=== PATIENT | female | born 1970 | race Caucasian/White ===

== ENCOUNTER → 2017-01-25 | Outpatient (CLI) | payer OTHER ==
[~2017-01-25] MED LIST: CHOL100027 PO; CLR10 PO; IBUP-1277 PO; MELO15TA4 PO; OMEP40CA PO; SYN150 PO; VITA500T2 PO
== END | disposition home or self-care (01) ==
LOC: C.PATHSPEC 17:33
PROVIDERS: ATTEND Obstetrics & Gynecology
DX: N90.89 Other specified noninflammatory disorders of vulva and perineum (principal); R87.622 Low grade squamous intraepithelial lesion on cytologic smear of vagina (LGSIL)

== ENCOUNTER → 2017-02-03 | Outpatient (CLI) | payer OTHER ==
[2017-02-06 03:10] LABS: CHLAMYDIA TRACH RNA*** NOT DETECTED (NOT DETECTED); GC (NEIS GONORRHOEAE)RNA** NOT DETECTED (NOT DETECTED)
== END | disposition home or self-care (01) ==
LOC: C.LABSPEC 17:29
PROVIDERS: ATTEND Physician Assistant
DX: Z11.3 Encounter for screening for infections with a predominantly sexual mode of transmission (principal)

== ENCOUNTER → 2017-07-15 | Outpatient (CLI) | payer OTHER ==
--- NOTE | 2017-07-15 15:47 | MAMMOGRAPHY REPORT ---
BILATERAL DIGITAL SCREENING MAMMOGRAM TOMOSYNTHESIS WITH CAD: 07/15/2017 CLINICAL HISTORY: Routine screening. Patient has no complaints. TECHNIQUE: Breast tomosynthesis in addition to standard 2D mammography was performed. Current study was also evaluated with a Computer Aided Detection (CAD) system. COMPARISON: Comparison is made to exams dated: 07/14/2016 mammogram - [facility], mammogram, 03/13/2014 mammogram, 03/07/2013 mammogram, 03/09/2012 mammogram, and 03/01/2012 mammo gram - [facility]. BREAST COMPOSITION: There are scattered areas of fibroglandular density in both breasts. FINDINGS: No suspicious masses, calcifications, or areas of architectural distortion are noted in ei ther breast. There has been no significant interval change compared to prior exams. 2 benign-appeari ng circumscribed masses in the right upper outer quadrant are stable dating back to at least the 2009 exam and are benign and likely represent intramammary lymph nodes. IMPRESSION: ACR BI-RADS CATEGORY 2: BENIGN There is no mammographic evidence of malignancy. A 1 year screening mammogram is recommended. The pa tient will receive written notification of the results. Approximately 10% of breast cancers are not detected with mammography. A negative mammographic report should not delay biopsy if a clinically suggestive mass is present. Radha Ocasio M.D. /:07/15/2017 12:42:19 Umbrella Tipper: Lolis Ga, [facility] letter sent: Normal 1/2 BI-RADS Code: ACR BI-RADS Category 2: Benign
== END | disposition home or self-care (01) ==
LOC: C.MAMM 09:24
PROVIDERS: ATTEND Obstetrics & Gynecology
DX: Z12.31 Encounter for screening mammogram for malignant neoplasm of breast (principal)

== ENCOUNTER → 2018-01-04 | Outpatient (CLI) | payer OTHER ==
[~2018-01-04] MED LIST changes: +MELO-83 PO; -MELO15TA4 PO
[2018-01-04 18:05] LABS: BASO % 0.2 %; BASO ABS # 0.02 K/uL (0-0.2); EOS % 0.7 %; EOS ABS # 0.07 K/uL (0-0.5); HEMATOCRIT 43.7 % (37-47); HEMOGLOBIN 14.7 g/dL (12.0-16.0); IG# 0.02 K/uL (0.00-0.02); LYMPH % 26.2 %; LYMPH ABS # 2.74 K/uL (1.2-3.4); MEAN CELL VOLUME 94.4 fL (80-100); MEAN CORPUSCULAR HEMOGLOBIN 31.7 pg (25-34); MEAN CORPUSCULAR HGB CONC 33.6 g/dl (32-36); MEAN PLATELET VOLUME 9.6 fL (7.4-10.4); MONO ABS # 0.73 K/uL (0.11-0.59); NEUT % 65.7 %; NEUT ABS # 6.88 K/uL (1.4-6.5); PLATELET COUNT 296 K/uL (130-400); RED CELL DISTRIBUTION WIDTH CV 13.6 % (11.5-14.5); RED CELL DISTRIBUTION WIDTH SD 46.9 fL (36.4-46.3); WHITE BLOOD COUNT 10.46 K/uL (4.8-10.8)
== END | disposition home or self-care (01) ==
LOC: C.LABMFLN 14:07
PROVIDERS: ATTEND Family Medicine
DX: R20.2 Paresthesia of skin (principal)

== ENCOUNTER 2024-08-17 22:55 | Observation (INO) ==
--- NOTE | 2024-08-17 23:17 | Emergency Department Note ---
History of Present Illness General Chief complaint: Infection, Wound Stated complaint: SURGICAL SITE ?INFECTED Time Seen by Provider: 08/17/24 22:57 History of Present Illness Maximum Pain Intensity: 7 This 54-year-old female that had hernia surgery on August 09 presents ER for redness pain and drainage from the incisional site. Patient had an umbilical hernia repair. Patient has fevers, vomiting, diarrhea, flulike illness. Home Medications Medication Instructions Recorded Confirmed Type loratadine 10 mg capsule 10 mg PO QAM 07/19/23 08/09/24 History lysine 1,000 mg tablet 1,000 mg PO QAM 07/19/23 08/09/24 History levothyroxine 150 mcg tablet 150 mcg PO QAM #90 tabs 12/22/23 08/09/24 Rx multivitamin with iron (Daily 1 tab PO HS 12/29/23 08/09/24 History Multiple Vitamins with Iron tablet) omeprazole 40 mg capsule,delayed 40 mg PO QAM 12/29/23 08/09/24 History release lisinopril 20 mg tablet 20 mg PO QAM #90 tabs 02/13/24 08/09/24 Rx calcium citrate-vitamin D3 125 1 tab PO QAM 03/08/24 08/18/24 History mg-62.5 unit tablet albuterol sulfate 90 mcg/actuation 2 puff inhalation QID PRN 05/18/24 08/18/24 Rx aerosol inhaler shortness of breath or wheezing #3 ea fluticasone 100 mcg-salmeterol 50 1 inh inhalation BID PRN flare up 07/04/24 08/09/24 History mcg/dose blistr powdr for inhalation (Advair Diskus) fluticasone fur. 100 mcg-umeclid 1 inh inhalation QAM 07/04/24 08/09/24 History 62.5 mcg-vilant 25 mcg inhalat.powder (Trelegy Ellipta) mecobalamin (vitamin B12) 1,000 1,000 mcg PO HS 07/09/24 08/09/24 History mcg lozenges oxycodone 5 mg tablet 5 - 10 mg (1 - 2 x 5 mg) PO 08/09/24 Rx .[id number] PRN pain #15 tabs Allergies Allergy/AdvReac Type Severity Reaction Status Date / Time Penicillins Allergy Mild Unknown Verified 08/09/24 09:45 Past Med/Surg History Problem List (Updated 08/18/24 @ 01:55 by Helen Elias PA-C) Post op infection (Acute) Abdominal wall cellulitis (Acute) Wound infection Incisional hernia Periumbilical mass Esophageal dysphagia Encounter for pre-operative examination Epigastric abdominal pain Vulvar lesion Frequent UTI Morbid obesity Weight gain Benign essential hypertension Edema of lower extremity S/P section Condyloma acuminatum (Chronic) hx Gastroesophageal reflux disease without esophagitis (Chronic) Hyperlipidemia (Chronic) Hypothyroidism, unspecified (Chronic) Generalized osteoarthritis of multiple sites (Chronic) Osteopenia (Chronic) Recurrent cold sores (Chronic) Vitamin B12 deficiency (Chronic) Asthma (Chronic) Medical History Morbid obesity s/p gastric sleeve 12/09/23; s/p approx 40lb wt loss Hypothyroidism Hyperlipidemia pt denies Generalized osteoarthritis GERD (gastroesophageal reflux disease) History of dysphagia History of esophageal dilatation Hypertension Chronic obstructive pulmonary disease well controlled with trelegy daily. Surgical History History of incisional hernia repair (08/09/24) Open Incisional Hernia Repair with Mesh(Not Applicable) - Milton Poe DO History of section x1 S/P gastric sleeve procedure 12-20-23 [place] History of laparoscopic cholecystectomy (2004) History of esophagogastroduodenoscopy (EGD) Hx of colonoscopy S/P wisdom tooth extraction Hx of hand surgery 07/04/20 Left hand - arthroplasty [facility] Dr. Sky Family History Mother Pancreatic cancer Thyroid disease Sister Thyroid disease Diabetes Grandmother (Maternal) Breast cancer Other Heart disease Stroke Denies family history of Ovarian cancer Prostate cancer Colorectal cancer Social History Smoking Status: Former smoker Tobacco Type: Cigarettes Age Started Using Tobacco: 27; Age Quit Using Tobacco: 47; packs per day: 0.5; Second Hand Exposure: No; Do You Dip or Chew Tobacco: No; Hx Alcohol Use: No Hx Substance Use: No Preferred Language: Panamanian Communication Ability: Effective Visual Impairment: No Limitations Clinical Social Work Therapist Required: No Beliefs That Will Affect Care: None marital status: Single Current Living Situation: Alone current occupational status: employed How many Children do You have: 1 Feels Safe at Home: Yes during the past year weight has: decreased > 10 lbs Assistive Devices: Glasses Review of Systems A total of 10 systems reviewed and were otherwise negative Physical Exam Vital Signs Vital Signs - 24 hr 08/17/24 23:01 08/17/24 23:30 08/17/24 23:30 Temperature 37.1 C Temperature Source Oral Pulse Rate 95 H 92 H Pulse Rate [Apical] 83 Pulse Rhythm [Apical] Regular Respiratory Rate 20 16 16 Respiratory Effort / Characteristics Non-Labored Spontaneous Non-Labored Respiratory Depth Normal Normal Respiratory Pattern Regular Blood Pressure 182/98 H Blood Pressure [Right Arm] 152/110 H Blood Pressure Mean 126 Blood Pressure Mean [Right Arm] 124 Blood Pressure Position [Right Arm] Lying Pulse Oximetry 97 95 Oxygen Delivery Method Room Air Room Air Room Air Oxygen Flow Rate Sepsis Recent Fever Within 48 Hours No Sepsis New/Unexplained Change in Mental Status No Sepsis Action Taken by Nursing No Action Required 08/18/24 01:00 08/18/24 01:30 Temperature Temperature Source Pulse Rate 78 Pulse Rate [Apical] 91 H Pulse Rhythm [Apical] Respiratory Rate 16 16 Respiratory Effort / Characteristics Non-Labored Respiratory Depth Normal Respiratory Pattern Regular Blood Pressure Blood Pressure [Right Arm] 141/83 H Blood Pressure Mean Blood Pressure Mean [Right Arm] 102 Blood Pressure Position [Right Arm] Pulse Oximetry 97 88 L Oxygen Delivery Method Room Air Room Air Oxygen Flow Rate 2 Sepsis Recent Fever Within 48 Hours Sepsis New/Unexplained Change in Mental Status Sepsis Action Taken by Nursing VITALS: Vitals are noted on the nurse's note and reviewed by myself. Vital signs stable. GENERAL: Pleasant female, in no acute distress, nondiaphoretic, well-developed well-nourished. SKIN: Capillary reflex less than 2 seconds. HEENT: Normocephalic. PERRLA. EOMI. Nares patent. Mucous membranes moist. Neck is supple without nuchal rigidity. HEART: Regular rate and rhythm LUNGS: Clear to auscultation bilaterally without wheezes, rales or rhonchi. No retractions or accessory muscle use. ABDOMEN: Positive bowel sounds x 4. Normal tympanic percussion. Soft,midline incision with purulent drainage, erythematous, tender to palpation, culture taken and sent, without masses or organomegaly. Gomez sign negative. No guarding or rebound tenderness. no CVA tenderness MUSCULOSKELETAL: No gross musculoskeletal defects. NEURO: Patient was alert and oriented to person place and time. No focal neurological deficits. Course Administered Medications Morphine Sulfate (Morphine Sulfate 4 Mg/Ml 1 Ml Carp\Vial) 4 mg IV Q15M PRN PRN Reason: Pain Stop: 08/31/24 23:10 Last Admin: 08/18/24 00:57 Dose: 4 mg Documented By: Admin: 08/17/24 23:40 Dose: 4 mg Documented By: CHARLOTTE Discontinued Medications Cefepime HCl (Maxipime 2000mg) 2,000 mg in 20 mls @ 5 mls/min IV NOW STA; Protocol Stop: 08/17/24 23:16 Last Admin: 08/17/24 23:40 Dose: 5 mls/min Documented By: CHARLOTTE Metronidazole (Flagyl) 500 mg in 100 mls @ 100 mls/hr IV NOW STA; Protocol Stop: 08/18/24 00:12 Last Infusion: 08/18/24 00:54 Dose: Infused Documented By: Admin: 08/17/24 23:48 Dose: 100 mls/hr Documented By: CHARLOTTE Ioversol (Optiray 320 100ml) 93 ml IV ONCE ONE Stop: 08/18/24 00:20 Last Admin: 08/18/24 00:19 Dose: 93 ml Documented By: SHELBIE Ondansetron HCl (Ondansetron Inj 2 Mg/Ml 2 Ml Vial) 4 mg IV NOW STA Stop: 08/17/24 23:12 Last Admin: 08/17/24 23:40 Dose: 4 mg Documented By: CHARLOTTE Medical Decision Making Medical Records Attestation: I reviewed the patient's medical records. Home Medications Current Medication List: was personally reviewed by me Laboratory Data Attestation: I reviewed the patient's lab results. 08/17/24 23:11 08/17/24 23:11 Lab Results 08/17/24 08/17/24 08/17/24 Range/Units 23:11 23:14 23:31 WBC 9.99 (4.8-10.8) K/ul RBC 4.14 L (4.20-5.40) M/uL Hgb 12.2 (12.0-16.0) g/dl Hct 37.5 (37.0-47.0) % MCV 90.6 (80.0-100.0) fL MCH 29.5 (25.0-34.0) pg MCHC 32.5 (32.0-36.0) g/dL RDW Std Deviation 42.6 (36.4-46.3) fL RDW Coeff of Adalberto 12.9 (11.5-14.5) % Plt Count 350 (130-400) K/uL MPV 9.6 (9.4-12.4) fL Immature Gran % (Auto) 0.3 % Neut % (Auto) 70.2 % Lymph % (Auto) 18.0 % [place] % (Auto) 9.3 % Eos % (Auto) 1.8 % Baso % (Auto) 0.4 % Neut # (Auto) 7.01 H (1.40-6.50) K/uL Lymph # (Auto) 1.80 (1.20-3.40) K/uL [place] # (Auto) 0.93 H (0.11-0.59) K/uL Eos # (Auto) 0.18 (0.00-0.50) K/uL Baso # (Auto) 0.04 (0.00-0.20) K/uL Immature Gran # (Auto) 0.03 (0.01-0.20) K/uL Sodium 137 (136-145) mmol/L Potassium 4.0 (3.5-5.1) mmol/L Chloride 103 (98-107) mmol/L Carbon Dioxide 28 (21-32) mmol/L Anion Gap 6 (3-11) BUN 16 (6-23) mg/dl Creatinine 0.83 (0.6-1.2) mg/dl Est Cr Clr Drug Dosing 87.3 ml/min eGFR 83.20 BUN/Creatinine Ratio 19.3 (10-20) Glucose 108 H (70-99(Fasting)) mg/dl Lactate 0.7 (0.4-2.0) mmol/L Calcium 9.2 (8.6-10.3) mg/dl Total Bilirubin 0.4 (0.2-1.0) mg/dl AST 16 (13-39) U/L ALT 20 (7-52) U/L Alkaline Phosphatase 84 (34-104) U/L Total Protein 6.7 (6.0-8.3) gm/dl Albumin 3.7 (3.4-5.0) gm/dl Globulin 3.0 (2.5-4.0) gm/dl Albumin/Globulin Ratio 1.2 (0.9-2) Lipase 22 (11-82) U/L Urine Color Yellow Urine Appearance Clear (Clear) Urine pH 6.0 (4.5-7.5) Ur Specific [place] 1.016 (1.000-1.030) Urine Protein Negative (Negative) Urine Glucose (UA) Negative (Negative) Urine Ketones Negative (Negative) Urine Blood Negative (Negative) Urine Nitrite Negative (Negative) Urine Bilirubin Negative (Negative) Urine Urobilinogen Negative (Negative) Ur Leukocyte Esterase Trace H (Negative) Urine WBC (Auto) 0-5 (0-5) /hpf Urine RBC (Auto) 3-5 H (0-2) /hpf U Hyaline Cast (Auto) 0-2 (0-2) /lpf U Epithel Cells (Auto) 0-2 (0-2) /hpf Urine Bacteria (Auto) None Seen (None Seen) Imaging Data Attestation: I personally reviewed and interpreted this imaging study as follows: Radiologist's Impression: Abdomen/Pelvis CT 08/17/24 23:12 EXAM: CT abd pelvis IV con only CLINICAL HISTORY: Patient reports drainage through her surgical bandage after having hernia surgery with Dr Poe on 08/09. Dr Hernandez butcher scullion PA recommended patient to come to the ED. 93 ml opti 320 PW/BM INPATIENT TECHNIQUE: Contiguous axial images were obtained from the level of the diaphragm to the pubic symphysis without and with intravenous contrast. Coronal and sagittal reconstructions were likewise performed and indicated to increase the sensitivity for detecting clinically relevant pathology. If IV contrast material had not been administered, the likelihood of detecting abnormalities relevant to the patient's condition would have been substantially decreased. CT scan was performed according to ALARA (as low as reasonable achievable). COMPARISON: None. FINDINGS: The visualized lung bases are clear. Small hiatus hernia present. The liver is normal in size and attenuation. No focal liver lesions are seen. There is no intra or extrahepatic biliary ductal dilatation. Hepatic vasculature is patent. The gallbladder is removed. The spleen, pancreas, and adrenal glands are unremarkable. The kidneys are normal in size and attenuation. There is no hydronephrosis or perinephric fat stranding. No renal calculi or renal masses are identified. The ureters are normal in caliber and no ureteral calculi are seen. The bladder is normal in contour. Pelvic viscera are unremarkable. No focal or diffuse bowel wall thickening or evidence of bowel obstruction is identified. No evidence of inflamed appendix. Abdominal and pelvic vasculature is patent. No adenopathy or fluid collections are seen. No aggressive appearing osseous lesions are identified. Approximately 26 x 29 x 28 mm sized peripherally enhancing loculated collection is noted involving anterior abdominal wall (umbilical - supraumbilical region) which shows few internal air foci - suggestive of abscess formation. Mild oedema of adjacent rectus abdominis muscle. IMPRESSION: 1. Small peripherally enhancing loculated collection is noted involving anterior abdominal wall (umbilical - supraumbilical region) which shows few internal air foci - suggestive of abscess formation. Mild edema of adjacent rectus abdominis muscle. 2. Rest of the abdomen appears unremarkable. Electronically signed by Long Medley 08-18-2024 01:37 AM MDM Narrative Prior records reviewed and summarized as above. Triage Nursing notes reviewed. Additional history obtained from family. The patient's history was concerning for swelling and redness of the skin. Differential diagnosis: Etiologies such as postop infection, cellulitis, abscess, MRSA infection, DVT, necrotizing fasciitis, dermatitis, drug eruption, as well as others were entertained.. Physical examination: As above ER treatment provided: Cefepime and Flagyl were ordered On reassessment the patient felt better. Diagnostics interpreted by me: The labs Independently Interpreted by myself revealed No worrisome leukocytosis, negative lactic Wound culture pending Imaging studies: CT was reviewed and read by radiology as above Consultation: A consultation was placed with the surgical midlevel, Yaw. the case was discussed and diagnostics were reviewed. The patient was evaluated in the ER for further treatment. Patient was admitted to their service. This appears to be postsurgical infection with abscess development Of the abdominal wall. Patient was started on antibiotics upon initial evaluation. Wound cultures pending. Patient was admitted to the surgical service. Patient is agreeable. By the evaluation outlined above emergent etiologies such as necrotizing fasciitis, DVT, as well as others were deemed relatively unlikely. The pt informed about the findings as listed above. All questions were answered and pleased with the treatment. The chart was completed utilizing [employer] Speech voice recognition software. Grammatical errors, random word insertions, pronoun errors, and incomplete sentences are an occassional consequence of this system due to software limitations, ambient noise, and hardware issues. Any formal questions or concerns about the content, text, or information contained within the body of this dictation should be directly addressed to the physician periodicals library assistant for clarification. Impression & Plan Abdominal wall cellulitis, Post op infection Discharge Plan Visit Data Chief Complaint: Infection, Wound Stated Complaint: SURGICAL SITE ?INFECTED ED Provider: Morgan Vallejo ED Midlevel Provider: Helen Elias Discharge Problem: Abdominal wall cellulitis, Post op infection Patient Disposition: Admitted As Inpatient Condition: Good Forms Stand Alone Forms: [facility] [place] [employer] Prescriptions Prescriptions: No Action levothyroxine 150 mcg tablet 150 mcg PO QAM Qty: 90 3RF lisinopril 20 mg tablet 20 mg PO QAM Qty: 90 3RF albuterol sulfate 90 mcg/actuation HFA aerosol inhaler 2 puff inhalation QID PRN (Reason: shortness of breath or wheezing) Qty: 3 1RF calcium citrate-vitamin D3 125-62.5 mg-unit tablet 1 tab PO QAM omeprazole 40 mg capsule,delayed release(DR/EC) 40 mg PO QAM multivitamin with iron [Daily Multiple Vitamins/Iron] Tablet 1 tab PO HS fluticasone propion-salmeterol [Advair Diskus] 100-50 mcg/dose blister with device 1 inh inhalation BID PRN (Reason: flare up) Trelegy Ellipta 100-62.5-25 mcg blister with device 1 inh inhalation QAM mecobalamin (vitamin B12) 1,000 mcg lozenge 1,000 mcg PO HS Rx Instructions: allow to dissolve in mouth OR may chew lightly before swallowing lysine 1,000 mg tablet 1,000 mg PO QAM loratadine 10 mg capsule 10 mg PO QAM oxycodone 5 mg tablet 5 - 10 mg PO .[id number] MDD no more than 6 tabs in 24hours PRN (Reason: pain) Qty: 15 0RF Referrals Referrals: Melissa Martinez DO [Primary Care Provider] -
[2024-08-17] MEDS: MoRPHine SULFATE 4 MG/ML 1 ML CARP\\VIAL IV PRN (23:40)
[2024-08-17] MEDS: ONDANSETRON INJ 2 MG/ML 2 ML VIAL IV STA (23:40)
[2024-08-17] MEDS: CEFEPIME 2000MG 2,000 MG/20 ML SYR IV STA (23:40)
[2024-08-17] MEDS: metroNIDAZOLE 500 MG/100 ML BAG IV STA (23:48)
[2024-08-17 23:50] LABS: Appearance Urine Clear (Clear); Bacteria Urine Automated None Seen (None Seen); Bilirubin Urine Negative (Negative); Blood Urine Negative (Negative); Cast Urine Automated 0-2 /lpf (0-2); Color Urine Yellow; Epithelial Cell Urine Auto 0-2 /hpf (0-2); Glucose Urine UA Negative (Negative); Ketones Urine Negative (Negative); Leukocyte Esterase Urine Trace (Negative); Nitrite Urine Negative (Negative); Protein Urine Negative (Negative); Specific Gravity Urine 1.016 (1.000-1.030); Urobilinogen Urine Negative (Negative); WBC Urine Automated 0-5 /hpf (0-5)
[2024-08-17 23:52] LABS: Basophils # (auto) 0.04 K/uL (0.00-0.20); Basophils % (auto) 0.4 %; Eosinophils # (auto) 0.18 K/uL (0.00-0.50); Eosinophils % (auto) 1.8 %; Hematocrit (blood only) 37.5 % (37.0-47.0); Hemoglobin 12.2 g/dl (12.0-16.0); Immature Granulocytes # (auto) 0.03 K/uL (0.01-0.20); Immature Granulocytes % (auto) 0.3 %; Mean Corpuscular Hemoglobin 29.5 pg (25.0-34.0); Mean Corpuscular Hgb Conc 32.5 g/dL (32.0-36.0); Mean Corpuscular Volume 90.6 fL (80.0-100.0); Mean Platelet Volume 9.6 fL (9.4-12.4); Monocytes # (auto) 0.93 K/uL (0.11-0.59); Monocytes % (auto) 9.3 %; Neutrophils # (auto) 7.01 K/uL (1.40-6.50); Neutrophils % (auto) 70.2 %; Platelet Count 350 K/uL (130-400); RDW Coefficient of Variation 12.9 % (11.5-14.5); RDW Standard Deviation 42.6 fL (36.4-46.3); Red Blood Count 4.14 M/uL (4.20-5.40); White Blood Count 9.99 K/ul (4.8-10.8)
[2024-08-18 00:05] LABS: Albumin Globulin Ratio 1.2 (0.9-2); Albumin Level 3.7 gm/dl (3.4-5.0); BUN Creatinine Ratio 19.3 (10-20); Bilirubin,Total 0.4 mg/dl (0.2-1.0); Calcium 9.2 mg/dl (8.6-10.3); Creatinine Clr Calc Pharmacy 87.3 ml/min; Total Protein 6.7 gm/dl (6.0-8.3)
[2024-08-18] MEDS: OPTIRAY 320 100ml IV ONE (00:19)
--- NOTE | 2024-08-18 00:42 | History & Physical Report ---
Date of Service August 18, 2024 Assessment & Plan (1) Wound infection: Plan: I discussed with the treating clinician the emergency department and have evaluated the patient in room A10. Due to the patient's presenting signs and symptoms and findings on physical exam she will be admitted to the surgical service proceeding as follows: I do feel that due to the physical exam findings and the fact the patient has had mesh utilizing her hernia repair admission for intravenous antibiotics is warranted antibiotics Antibiotics have been initiated in the form of cefepime and Flagyl and this should continue Wound culture has been obtained, And thus far the Gram stain has identified rare gram-positive cocci with few white blood cells. Will follow-up for the culture results and adjust antibiotics accordingly We will check an MRSA nasal swab and if this is positive we will consider adding MRSA coverage The treating clinician the emergency department is ordered a CT scan of the abdomen pelvis and we will follow-up for the results of this Will continue with local wound care to the patient's incisionafter my examination I have covered with a dry sterile dressing Will follow serial labs At the present time the patient is normotensive with only a slight tachycardia (heart rate is in the 90s). No fever is present and she does not have an elevated white blood cell count or lactic acid level. I therefore feel conservative treatment as outlined above is warranted. Will utilize SCDs for DVT prevention, no chemical means until it is ascertained whether or not patient require any procedural intervention Will make her a level 1 full code Addendum (5:00 AM) Patient revisited at bedside where she is resting comfortably in bed. Since arrival to the floor she denies any fevers, shakes, or chills. She denies any worsening pain to her abdomen. Patient's vitals been reviewed and she has been afebrile without hypotension or tachycardia. MRSA nasal swab noted to be negative. Patient did undergo a CT scan of abdomen pelvis per patient was noted to have approximately 2.6 x 2.9 x 2.8 cm peripherally enhancing loculated fluid collection in the anterior abdominal wall in the umbilical and supraumbilical region/interpreting radiologist felt that this was suggestive of an abscess formation. Wound examined and there is been no change in what was noted at time of admission. We will continue with plan as outlined above, however due to CT scan findings we will keep patient n.p.o. until seen by surgical attending. History of Present Illness Chief Complaint: Concern for wound infection Primary Care Provider: Melissa Martinez DO This is a 54-year-old female who is well-known to [facility] for history of general surgery. The patient underwent an incisional hernia repair on 08/09/[address] Rosas Poe. During his hernia repair he did utilize mesh. Patient was able to be discharged home today of her surgical procedure. The patient notes that since being home from surgery she has been doing relatively well. She did have some expected postoperative pain near her incision and she notes that this has been getting better every day. She notes that currently her bowels have been working normally without signs of melena, hematochezia, or bright blood per rectum. She denies any nausea or vomiting. She does note that her appetite has essentially returned to normal since her surgical procedure. Patient called the answering service earlier the evening of 08/17/2024 as she noted some brownish drainage from her surgical incision that was not present previously. She also notes that she had marked erythema around her surgical incision that was not there previously. She specifically denies any fevers, shakes, or chills. She denies any worsening abdominal pain. She denies any lightheadedness or dizziness. Because of her noted signs and symptoms she was instructed to report to the emergency department for further evaluation Since arrival to the emergency department patient had labs drawn. CBC revealed white blood cell count, hemoglobin, hematocrit, and platelet count were normal. Chemistry profile showed sodium and potassium as well as her BUN and creatinine were normal. She had a lactic acid level checked that was not elevated at 0.7. There is no elevation of her LFTs or lipase. Urinalysis showed trace leukocyte Estrace but was otherwise not indicative of infection. At the time of my interview the patient was resting comfortably bed and she was in no distress. Allergies Allergy/AdvReac Type Severity Reaction Status Date / Time Penicillins Allergy Mild Unknown Verified 08/09/24 09:45 Home Medications Medication Instructions Recorded Confirmed Type loratadine 10 mg capsule 10 mg PO QAM 07/19/23 08/09/24 History lysine 1,000 mg tablet 1,000 mg PO QAM 07/19/23 08/09/24 History levothyroxine 150 mcg tablet 150 mcg PO QAM #90 tabs 12/22/23 08/09/24 Rx multivitamin with iron (Daily 1 tab PO HS 12/29/23 08/09/24 History Multiple Vitamins with Iron tablet) omeprazole 40 mg capsule,delayed 40 mg PO QAM 12/29/23 08/09/24 History release lisinopril 20 mg tablet 20 mg PO QAM #90 tabs 02/13/24 08/09/24 Rx calcium citrate-vitamin D3 125 1 tab PO QAM 03/08/24 08/18/24 History mg-62.5 unit tablet albuterol sulfate 90 mcg/actuation 2 puff inhalation QID PRN 05/18/24 08/18/24 Rx aerosol inhaler shortness of breath or wheezing #3 ea fluticasone 100 mcg-salmeterol 50 1 inh inhalation BID PRN flare up 07/04/24 08/09/24 History mcg/dose blistr powdr for inhalation (Advair Diskus) fluticasone fur. 100 mcg-umeclid 1 inh inhalation QAM 07/04/24 08/09/24 History 62.5 mcg-vilant 25 mcg inhalat.powder (Trelegy Ellipta) mecobalamin (vitamin B12) 1,000 1,000 mcg PO HS 07/09/24 08/09/24 History mcg lozenges oxycodone 5 mg tablet 5 - 10 mg (1 - 2 x 5 mg) PO 08/09/24 Rx [id number] PRN pain #15 tabs Past Med/Surg History Problem List (Updated 08/18/24 @ 01:55 by Helen Elias PA-C) Post op infection (Acute) Abdominal wall cellulitis (Acute) Wound infection Incisional hernia Periumbilical mass Esophageal dysphagia Encounter for pre-operative examination Epigastric abdominal pain Vulvar lesion Frequent UTI Morbid obesity Weight gain Benign essential hypertension Edema of lower extremity S/P section Condyloma acuminatum (Chronic) hx Gastroesophageal reflux disease without esophagitis (Chronic) Hyperlipidemia (Chronic) Hypothyroidism, unspecified (Chronic) Generalized osteoarthritis of multiple sites (Chronic) Osteopenia (Chronic) Recurrent cold sores (Chronic) Vitamin B12 deficiency (Chronic) Asthma (Chronic) Medical History Morbid obesity s/p gastric sleeve 12/09/23; s/p approx 40lb wt loss Hypothyroidism Hyperlipidemia pt denies Generalized osteoarthritis GERD (gastroesophageal reflux disease) History of dysphagia History of esophageal dilatation Hypertension Chronic obstructive pulmonary disease well controlled with trelegy daily. Surgical History History of incisional hernia repair (08/09/24) Open Incisional Hernia Repair with Mesh(Not Applicable) - Milton Poe, History of section x1 S/P gastric sleeve procedure 12-20-23 [place] History of laparoscopic cholecystectomy (2004) History of esophagogastroduodenoscopy (EGD) Hx of colonoscopy S/P wisdom tooth extraction Hx of hand surgery 07/04/20 Left hand - arthroplasty [facility] Dr. Sky Family History Mother Pancreatic cancer Thyroid disease Sister Thyroid disease Diabetes Grandmother (Maternal) Breast cancer Other Heart disease Stroke Denies family history of Ovarian cancer Prostate cancer Colorectal cancer Social History Smoking Status: Former smoker Tobacco Type: Cigarettes Age Started Using Tobacco: 27; Age Quit Using Tobacco: 47; packs per day: 0.5; Second Hand Exposure: No; Do You Dip or Chew Tobacco: No; Hx Alcohol Use: No Hx Substance Use: No Preferred Language: Welsh Communication Ability: Effective Visual Impairment: No Limitations Internal Control Specialist Required: No Beliefs That Will Affect Care: None marital status: Single Current Living Situation: Alone current occupational status: employed How many Children do You have: 1 Other Information That Helps Us Care for You: No Feels Safe at Home: Yes during the past year weight has: decreased > 10 lbs Assistive Devices: Glasses Review of Systems Review of Systems: All systems reviewed & are unremarkable except as noted in HPI & below Physical Exam Constitutional: WD/WN, vitals as above Eyes: no conjunctival abnormality ENMT: Ears: no hearing impairment and no external ear abnormality Mouth: no oropharynx abnormality Neck: trachea midline Respiratory: normal respiratory effort; no respiratory distress and no labored breathing Cardiovascular: Rate/Rhythm: regular rate and regular rhythm Vessels: dorsalis pedis pulses present and radial pulses present Gastrointestinal (Abdomen): Patient's abdomen was examined. Her abdomen is soft without rigidity or distention. There is no rebound tenderness or guarding. Patient had a midline incision just inferior to her umbilicus from her a forementioned hernia surgery. The incision is intact other than a small pinpoint opening at the inferior portion of the incision. There is no crepitus noted in the soft tissue. From the inferior portion of decision the patient had some brown fluid draining. This fluid was malodorous. The wound was gently probed with a sterile Q-tip to a depth of approximately 1 cm. There is approximately 2 to 3 cm of surrounding erythema along the incision. Musculoskeletal: No calf tenderness Skin: See above description under abdominal exam Neurologic: moves all extremities Psychiatric: A+Ox3, euthymic affect Results & Data Results & Data Vital Signs (Past 12 Hours) Vital Signs Temp Pulse Pulse Resp BP BP Pulse Ox 08/17/24 23:30 92 H 16 95 08/17/24 23:30 83 16 152/110 H 97 08/17/24 23:01 37.1 C 95 H 20 182/98 H O2 Del Method 08/17/24 23:30 Room Air 08/17/24 23:30 Room Air 08/17/24 23:01 Room Air Supervising Physician Co-Signing Physician Notes Patient discussed with Yaw Scott overnight, labs and imaging reviewed, agree with above. Admitted with surgical site infection with abscess, for full plan see today's progress note. PG Care Time/CCT Total # of Minutes Spent Total Time Spent with Patient: Total time spent is greater than 50% in coordination of care (as documented) at patient's floor/unit and/or counseling patient: Coding Level of Care Code 65231 INT INP/OBS CARE 3/75MIN Diagnoses Wound infection T14.8XXA; L08.9
--- NOTE | 2024-08-18 01:37 | CT Scan Report ---
EXAM: CT abd pelvis IV con only CLINICAL HISTORY: Patient reports drainage through her surgical bandage after having hernia surgery with Dr Poe on 08/09. Dr Hernandez evaluation manager PA recommended patient to come to the ED. 93 ml opti 320 PW/BM INPATIENT TECHNIQUE: Contiguous axial images were obtained from the level of the diaphragm to the pubic symphysis without and with intravenous contrast. Coronal and sagittal reconstructions were likewise performed and indicated to increase the sensitivity for detecting clinically relevant pathology. If IV contrast material had not been administered, the likelihood of detecting abnormalities relevant to the patient's condition would have been substantially decreased. CT scan was performed according to ALARA (as low as reasonable achievable). COMPARISON: None. FINDINGS: The visualized lung bases are clear. Small hiatus hernia present. The liver is normal in size and attenuation. No focal liver lesions are seen. There is no intra or extrahepatic biliary ductal dilatation. Hepatic vasculature is patent. The gallbladder is removed. The spleen, pancreas, and adrenal glands are unremarkable. The kidneys are normal in size and attenuation. There is no hydronephrosis or perinephric fat stranding. No renal calculi or renal masses are identified. The ureters are normal in caliber and no ureteral calculi are seen. The bladder is normal in contour. Pelvic viscera are unremarkable. No focal or diffuse bowel wall thickening or evidence of bowel obstruction is identified. No evidence of inflamed appendix. Abdominal and pelvic vasculature is patent. No adenopathy or fluid collections are seen. No aggressive appearing osseous lesions are identified. Approximately 26 x 29 x 28 mm sized peripherally enhancing loculated collection is noted involving anterior abdominal wall (umbilical - supraumbilical region) which shows few internal air foci - suggestive of abscess formation. Mild oedema of adjacent rectus abdominis muscle. IMPRESSION: 1. Small peripherally enhancing loculated collection is noted involving anterior abdominal wall (umbilical - supraumbilical region) which shows few internal air foci - suggestive of abscess formation. Mild edema of adjacent rectus abdominis muscle. 2. Rest of the abdomen appears unremarkable. Electronically signed by Long Medley 08-18-2024 01:37 AM
[2024-08-18] MEDS ORDERED: ONDANSETRON INJ 2 MG/ML 2 ML VIAL IV PRN (03:13)
[2024-08-18] MEDS ORDERED: ACETAMINOPHEN 1,000 MG/100 ML VIAL IV PRN (03:13)
[2024-08-18] MEDS: LEVOTHYROXINE SODIUM 150 MCG TABLET PO SCH (06:14)
[2024-08-18 06:37] LABS: Basophils # (auto) 0.03 K/uL (0.00-0.20); Basophils % (auto) 0.5 %; Eosinophils # (auto) 0.11 K/uL (0.00-0.50); Eosinophils % (auto) 1.8 %; Hematocrit (blood only) 34.9 % (37.0-47.0); Hemoglobin 11.4 g/dl (12.0-16.0); Immature Granulocytes # (auto) 0.02 K/uL (0.01-0.20); Immature Granulocytes % (auto) 0.3 %; Lymphocytes # (auto) 1.27 K/uL (1.20-3.40); Lymphocytes % (auto) 20.8 %; Mean Corpuscular Hemoglobin 29.5 pg (25.0-34.0); Mean Corpuscular Hgb Conc 32.7 g/dL (32.0-36.0); Mean Corpuscular Volume 90.2 fL (80.0-100.0); Mean Platelet Volume 9.5 fL (9.4-12.4); Monocytes # (auto) 0.62 K/uL (0.11-0.59); Monocytes % (auto) 10.2 %; Neutrophils # (auto) 4.05 K/uL (1.40-6.50); Neutrophils % (auto) 66.4 %; Platelet Count 322 K/uL (130-400); RDW Standard Deviation 42.8 fL (36.4-46.3); Red Blood Count 3.87 M/uL (4.20-5.40)
[2024-08-18 06:39] LABS: BUN Creatinine Ratio 17.9 (10-20); Calcium 9.3 mg/dl (8.6-10.3); Creatinine Clr Calc Pharmacy 110.9 ml/min; Potassium 4.1 mmol/L (3.5-5.1)
[2024-08-18] MEDS: LORATADINE 10 MG TAB PO SCH (07:37)
[2024-08-18] MEDS: metroNIDAZOLE 500 MG/100 ML BAG IV SCH (07:37)
[2024-08-18] MEDS: lisinopril 20 MG TAB PO SCH (07:37)
[2024-08-18] MEDS ORDERED: CEFEPIME 1000MG 1,000 MG/10 ML SYR IV SCH (10:00)
[2024-08-18] MEDS ORDERED: MoRPHine SULFATE 4 MG/ML 1 ML CARP\\VIAL IV PRN (10:43)
[2024-08-18] MEDS ORDERED: MoRPHine SULFATE 2 MG/ML CARP IV PRN (10:43)
[2024-08-18] MEDS ORDERED: ACETAMINOPHEN 500 MG TAB PO PRN (10:43)
[2024-08-18] MEDS ORDERED: oxyCODONE HCL IR 5 MG TAB (IMMEDIATE RELEASE) PO PRN ×2 (10:43)
[2024-08-18] MEDS: LIDOCAINE 1%/EPINEPHRINE 1:100,000 50 ML VIAL INJ STA (10:57)
[2024-08-18] MEDS: LIDOCAINE 1%/EPINEPHRINE 1:100,000 20 ML VIAL INJ STA (10:57)
--- NOTE | 2024-08-18 11:03 | Surgery Progress Note ---
Date of Service August 18, 2024 Assessment & Plan (1) Wound infection: Plan: Surgical site infection with abscess. The wound was opened at the bedside, see procedure note for details Wet-to-dry dressing changes twice daily, first change tomorrow morning Will continue IV antibiotics for 24 hours, then transition over to oral antibiotics Cultures pending (2) History of incisional hernia repair: Admission and Anticipated Discharge Date Admission Date: August 18, 2024 Subjective Status post ventral hernia repair by Dr. Poe, admitted overnight with surgical site infection with abscess. Draining a little bit, still painful. Physical Exam Constitutional: WD/WN, vitals as above + obese Respiratory: normal respiratory effort, lungs clear to auscultation Cardiovascular: RRR, no murmur, no edema Gastrointestinal (Abdomen): Inspection/Auscultation: + abdominal surgical incision (Purulent drainage inferiorly, erythema around incision) Percussion/Palpation: + abdomen tender (At incision site) and abdomen soft Results & Data Vital Signs (Past 12 Hours) Vital Signs Temp Pulse Pulse Pulse Resp BP BP 08/18/24 07:28 36.9 C 72 18 127/78 08/18/24 03:49 37.0 C 88 18 141/78 H 08/18/24 02:23 76 18 129/71 08/18/24 01:30 78 16 08/18/24 01:00 91 H 16 141/83 H 08/17/24 23:30 92 H 16 08/17/24 23:30 83 16 152/110 H 08/17/24 23:01 37.1 C 95 H 20 182/98 H Pulse Ox O2 Del Method O2 Flow Rate 08/18/24 07:28 96 Room Air 08/18/24 03:49 97 Room Air 08/18/24 02:23 99 Nasal Cannula 2 08/18/24 01:30 88 L Room Air 2 08/18/24 01:00 97 Room Air 08/17/24 23:30 95 Room Air 08/17/24 23:30 97 Room Air 08/17/24 23:01 Room Air Laboratory Results Laboratory Results - last 24 hr 08/17/24 08/17/24 08/17/24 23:11 23:14 23:31 WBC 9.99 RBC 4.14 L Hgb 12.2 Hct 37.5 MCV 90.6 MCH 29.5 MCHC 32.5 RDW Std Deviation 42.6 RDW Coeff of Adalberto 12.9 Plt Count 350 MPV 9.6 Immature Gran % (Auto) 0.3 Neut % (Auto) 70.2 Lymph % (Auto) 18.0 [place] % (Auto) 9.3 Eos % (Auto) 1.8 Baso % (Auto) 0.4 Neut # (Auto) 7.01 H Lymph # (Auto) 1.80 [place] # (Auto) 0.93 H Eos # (Auto) 0.18 Baso # (Auto) 0.04 Immature Gran # (Auto) 0.03 Sodium 137 Potassium 4.0 Chloride 103 Carbon Dioxide 28 Anion Gap 6 BUN 16 Creatinine 0.83 Est Cr Clr Drug Dosing 87.3 eGFR 83.20 BUN/Creatinine Ratio 19.3 Glucose 108 H Lactate 0.7 Calcium 9.2 Total Bilirubin 0.4 AST 16 ALT 20 Alkaline Phosphatase 84 Total Protein 6.7 Albumin 3.7 Globulin 3.0 Albumin/Globulin Ratio 1.2 Lipase 22 Urine Color Yellow Urine Appearance Clear Urine pH 6.0 Ur Specific [place] 1.016 Urine Protein Negative Urine Glucose (UA) Negative Urine Ketones Negative Urine Blood Negative Urine Nitrite Negative Urine Bilirubin Negative Urine Urobilinogen Negative Ur Leukocyte Esterase Trace H Urine WBC (Auto) 0-5 Urine RBC (Auto) 3-5 H U Hyaline Cast (Auto) 0-2 U Epithel Cells (Auto) 0-2 Urine Bacteria (Auto) None Seen Nasal Screen MRSA (PCR) 08/18/24 08/18/24 00:26 06:08 WBC 6.10 RBC 3.87 L Hgb 11.4 L Hct 34.9 L MCV 90.2 MCH 29.5 MCHC 32.7 RDW Std Deviation 42.8 RDW Coeff of Adalberto 13.0 Plt Count 322 MPV 9.5 Immature Gran % (Auto) 0.3 Neut % (Auto) 66.4 Lymph % (Auto) 20.8 [place] % (Auto) 10.2 Eos % (Auto) 1.8 Baso % (Auto) 0.5 Neut # (Auto) 4.05 Lymph # (Auto) 1.27 [place] # (Auto) 0.62 H Eos # (Auto) 0.11 Baso # (Auto) 0.03 Immature Gran # (Auto) 0.02 Sodium 139 Potassium 4.1 Chloride 105 Carbon Dioxide 28 Anion Gap 6 BUN 12 Creatinine 0.67 Est Cr Clr Drug Dosing 110.9 eGFR 103.16 BUN/Creatinine Ratio 17.9 Glucose 93 Lactate Calcium 9.3 Total Bilirubin AST ALT Alkaline Phosphatase Total Protein Albumin Globulin Albumin/Globulin Ratio Lipase Urine Color Urine Appearance Urine pH Ur Specific [place] Urine Protein Urine Glucose (UA) Urine Ketones Urine Blood Urine Nitrite Urine Bilirubin Urine Urobilinogen Ur Leukocyte Esterase Urine WBC (Auto) Urine RBC (Auto) U Hyaline Cast (Auto) U Epithel Cells (Auto) Urine Bacteria (Auto) Nasal Screen MRSA (PCR) Negative Diagnostic Findings CT scan personally viewed and interpreted agree with the assessment of a fluid collection consistent with an abscess at the area of the surgical site overlying the fascia. Hernia repair and appears intact. Abdomen/Pelvis CT 08/17/24 23:12 EXAM: CT abd pelvis IV con only CLINICAL HISTORY: Patient reports drainage through her surgical bandage after having hernia surgery with Dr Poe on 08/09. Dr Hernandez instructional specialist PA recommended patient to come to the ED. 93 ml opti 320 PW/BM INPATIENT TECHNIQUE: Contiguous axial images were obtained from the level of the diaphragm to the pubic symphysis without and with intravenous contrast. Coronal and sagittal reconstructions were likewise performed and indicated to increase the sensitivity for detecting clinically relevant pathology. If IV contrast material had not been administered, the likelihood of detecting abnormalities relevant to the patient's condition would have been substantially decreased. CT scan was performed according to ALARA (as low as reasonable achievable). COMPARISON: None. FINDINGS: The visualized lung bases are clear. Small hiatus hernia present. The liver is normal in size and attenuation. No focal liver lesions are seen. There is no intra or extrahepatic biliary ductal dilatation. Hepatic vasculature is patent. The gallbladder is removed. The spleen, pancreas, and adrenal glands are unremarkable. The kidneys are normal in size and attenuation. There is no hydronephrosis or perinephric fat stranding. No renal calculi or renal masses are identified. The ureters are normal in caliber and no ureteral calculi are seen. The bladder is normal in contour. Pelvic viscera are unremarkable. No focal or diffuse bowel wall thickening or evidence of bowel obstruction is identified. No evidence of inflamed appendix. Abdominal and pelvic vasculature is patent. No adenopathy or fluid collections are seen. No aggressive appearing osseous lesions are identified. Approximately 26 x 29 x 28 mm sized peripherally enhancing loculated collection is noted involving anterior abdominal wall (umbilical - supraumbilical region) which shows few internal air foci - suggestive of abscess formation. Mild oedema of adjacent rectus abdominis muscle. IMPRESSION: 1. Small peripherally enhancing loculated collection is noted involving anterior abdominal wall (umbilical - supraumbilical region) which shows few internal air foci - suggestive of abscess formation. Mild edema of adjacent rectus abdominis muscle. 2. Rest of the abdomen appears unremarkable. Electronically signed by Long Medley 08-18-2024 01:37 AM PG Care Time/CCT Total # of Minutes Spent Total Time Spent with Patient: Total time spent is greater than 50% in coordination of care (as documented) at patient's floor/unit and/or counseling patient: Coding Level of Care Code 50959 SUB INP/OBS CARE 2/35MIN Diagnoses Wound infection T14.8XXA; L08.9 History of incisional hernia repair Z98.890; Z87.19
--- NOTE | 2024-08-18 11:04 | Procedure Note ---
Procedure Note Date of Service August 18, 2024 Verbal consent was obtained. Dermabond was removed. The area was prepped with iodine. 1% lidocaine with epinephrine was injected at the incision site. A 15 blade was then used to open the old incision, purulent drainage was encountered inferiorly. Cultures were sent. Wound was irrigated with good hemostasis. The fascia appeared intact. The wound was packed with a wet 4 x 4. Fluffed 4 x 4's and an ABD were placed. The patient tolerated procedure without incident. Coding Additional Codes Date of Service (PG.SURGERY)
[2024-08-18] MEDS: CLINDAMYCIN/D5W 600 MG/50 ML BAG IV SCH (11:11)
[2024-08-18] MEDS: KETOROLAC TROMETHAMINE 15 MG/ML VIAL IV SCH (11:11)
[2024-08-18 20:05] VITALS: O2SAT 96
--- NOTE | 2024-08-19 05:08 | Surgery Progress Note ---
Date of Service August 19, 2024 Assessment & Plan (1) Post op infection: Plan: Patient's status post ventral hernia repair on 08/09/2024 She required readmission due to wound infection on 08/18/2024: Due to purulent drainage wound was reopened at bedside by Dr. Carlton on 08/18/2024 Initial culture performed in the emergency department is pending but Gram stain showed gram-positive cocci Culture performed by Dr. Carlton after wound reopened is pending and Gram stains shows no organisms She is currently on antibiotics which have not been changed to clindamycin which should continue Will await further culture results and tailor antibiotics accordingly based on cultures and her clinical response Continue local wound care with wet-to-dry dressing changes Encourage patient to keep mobilization efforts in place Additional recommendations to be forthcoming based on her clinical course as unfolds Admission and Anticipated Discharge Date Admission Date: August 18, 2024 Supervising Physician Co-Signing Physician Notes Patient seen and examined, agree with above. Status post incisional hernia repair by Dr. Poe, presented with surgical site infection. I opened the wound yesterday and packed with gauze. Dressing change this morning by CATHY Esteves, wound bed looked healthy, fascia intact, patient tolerated. Erythema improving. Afebrile. Will discharge to home, educate on wet-to-dry dressing changes which she will perform twice daily. Clindamycin x 10 days for antibiotics while we await Gram stain. Follow-up as scheduled. Return precautions given, call clinic with questions or concerns. Subjective Patient is resting comfortably in bed. She denies any fevers, shakes, or chills. No nausea or vomiting noted. She is tolerating diet. She notes minimal pain from her surgical incision/incision and drainage site. Physical Exam Gastrointestinal (Abdomen): Abdomen is soft and nondistended. There is no rebound tenderness or guarding. Patient's wound dressing was removed and packing removed. Wound bed appeared clean without gross purulence. There is some surrounding erythema from her incision but this appears to be improved from what was noted at time of admission. The patient's wound was repacked with wet-to-dry dressings utilizing 4 x 4's and covered with dry 4 x 4's and ABD pad. Results & Data Vital Signs (Past 12 Hours) Vital Signs Temp Pulse Resp BP Pulse Ox O2 Del Method 08/18/24 20:04 36.4 C L 80 14 111/74 96 Room Air PG Care Time/CCT Total # of Minutes Spent Total Time Spent with Patient: Total time spent is greater than 50% in coordination of care (as documented) at patient's floor/unit and/or counseling patient: Coding Level of Care Code 62346 Post Operative Follow-Up Diagnoses Post op infection T81.40XA
[2024-08-19 07:18] VITALS: RESP 18; TEMP 98.2
[2024-08-19 11:32] VITALS: BP 98/63; PULSE 71
== END 2024-08-19 13:41 | disposition home or self-care (01) ==
LOC: ED 22:55 → INTOOBSV 08-18 00:47 → 3W 08-18 00:47